=== PATIENT | male | born 1970 | race Two or more races ===

== ENCOUNTER 2017-11-12 13:55 | Emergency (ER) | payer MEDICAID ==
[~2017-11-12] VITALS: Ht 160 cm; Wt 83.5 kg
[2017-11-12 14:17] VITALS: BP 130/77
[2017-11-12] MEDS ORDERED: diphenhdrAMINE HCL 25 MG CAP PO ONE (14:45)
[2017-11-12] MEDS ORDERED: methylPREDNISolone SOD SUCC 125 MG/2 ML VL IM ONE (14:45)
== END 2017-11-12 15:48 | disposition home or self-care (01) ==
LOC: ER 13:55
DX: R22.0 Localized swelling, mass and lump, head (principal); T39.395A Adverse effect of other nonsteroidal anti-inflammatory drugs [NSAID], initial encounter; Y92.89 Other specified places as the place of occurrence of the external cause
CPT/HCPCS: 96372; 99283; J2930